=== PATIENT | male | born 1965 | race Caucasian/White ===

== ENCOUNTER → 2018-02-21 14:00 | Outpatient (CLI) | payer OTHER, SELFPAY | PROVIDERS: Family Provider Internal Medicine; PCP Internal Medicine | DX: Z23 Encounter for immunization (principal) | CPT/HCPCS: 90471; 90686 ==

== ENCOUNTER → 2018-05-24 09:28 | Outpatient (CLI) | payer OTHER, SELFPAY ==
--- NOTE | 2018-05-24 | DI.CT.S_ITS ---
PROCEDURE: CT CHEST ABD PEL W CON INDICATIONS: Reflux with upper abdominal pain TECHNIQUE: After the administration of oral and intravenous contrast, 5 mm thick sections acquired from the lung apices to the symphysis. 5 mm coronal and sagittal reformats were performed, with additional 7 mm coronal MIP reformats through the lungs. For radiation dose reduction, the following was used: automated exposure control, adjustment of mA and/or kV according to patient size. COMPARISON: None. FINDINGS: Image quality: Excellent. CHEST: Lungs and pleura: No acute airspace opacities. No pleural effusions or pneumothorax. Central and peripheral airways appear patent and normal in caliber. Mediastinum: Heart size is normal. No pericardial effusion. No mediastinal or hilar adenopathy by size criteria. Thoracic aorta and central pulmonary arteries are normal in size. Esophagus is normal in caliber. There is no hiatal hernia. Of note, questionable mucosal thickening is present at the anterior aspect of the gastroesophageal junction (series 2, image 54). The stomach demonstrates otherwise normal contours and wall thickness. Chest wall: No axillary or supraclavicular adenopathy by size criteria. Thyroid gland is unremarkable. ABDOMEN: Solid organs: Liver is normal in size and enhancement. A 2 mm diameter gallstone is present within the gallbladder fundus near the neck. No gallbladder wall thickening or pericholecystic fluid. Biliary system is non dilated. Pancreas enhances normally. Spleen is normal in size and enhancement. No adrenal nodules. Kidneys demonstrate normal size and enhancement, without hydronephrosis. A low density cyst is present within the lower pole of the left kidney. Peritoneum and bowel: Bowel loops demonstrate normal wall thickness and caliber. The appendix is thin walled and gas filled. No free fluid or air. Nodes and vessels: No retroperitoneal or mesenteric adenopathy by size criteria. Aorta and inferior vena cava are normal in size. There are scattered atheromatous calcifications throughout the aorta and iliac arteries bilaterally. Miscellaneous: No ventral hernias. PELVIS: Genitourinary: Bladder wall thickness is normal. Miscellaneous: No inguinal hernias or adenopathy. Bones: No suspicious bony lesions. No vertebral body compression fractures. IMPRESSION: 1. Questionable mucosal thickening of the anterior aspect of the gastroesophageal junction. Distal esophageal mass or Lilly's esophagus cannot be excluded. Differential considerations include incomplete distention of the normal gastric mucosa. If further characterization is warranted, direct visualization via endoscopy is recommended. Alternatively, barium swallow may be helpful to further characterize the mucosa in this region. 2. No acute intra-abdominal findings. Normal appendix. Dictated by: Geni Shearer M.D. on 05/24/2018 at 12:27 Approved by: Geni Shearer M.D. on 05/24/2018 at 12:38
== END ==
PROVIDERS: Family Provider Internal Medicine; PCP Internal Medicine; Visit Provider Physical Medicine & Rehabilitation
DX: K21.9 Gastro-esophageal reflux disease without esophagitis (principal); R10.10 Upper abdominal pain, unspecified
CPT/HCPCS: 71260; 74177; Q9967

== ENCOUNTER 2018-10-17 10:23 | Day surgery (SDC) | payer OTHER, SELFPAY ==
[2018-10-17] VITALS (9 sets, daily range): BP systolic 129–163; BP diastolic 82–104; PULSE 78–95; RESP 8–20; TEMP 36.3–36.5; O2SAT 88–96; BMI 32.0
--- NOTE | 2018-10-17 | PATH_ITS ---
[facility] Accession Number: [id number] . 01 Material submitted: . esophagus, E-G Junction - GE JUNCTION BIOPSIES . 02 Diagnosis: Gastroesophageal Junction, Biopsies: Squamocolumnar junctional mucosa with mild reactive features of reflux esophagitis. Negative for specialized intestinal metaplasia on alcian blue stain. Negative for dysplasia or malignancy. V/10/20/2018 . 02 Electronically signed: . Armaan Shah MD, PhD, Pathologist NPI- [id number] . 01 Gross description: . GE JUNCTION BIOPSIES: Received in formalin are multiple fragment(s) of jean-baptiste, soft tissue measuring 0.7 x 0.3 x 0.2 cm in aggregate submitted entirely in 1 cassette(s) /CKI /CKI . 02 Microscopic: . An alcian blue stain is performed to evaluate for specialized intestinal metaplasia, and is negative for goblet cells. A control stain shows appropriate reactivity. . 02 Pathologist provided ICD-10: K21.0 . 02 CPT . 714405, 289412 Performed at: 01 [facility] [address], [place], [place] [id number] MD David Moon MD Phone: [phone] Performed at: 02 [facility] [address] [place], [place] [id number] MD Amanda Otto MD Phone: [phone]
--- NOTE | 2018-10-17 10:39 | SUR.PREOP ---
Pt. states I have always been on the cusp of HTN, has discussed HTN with PCP.
[2018-10-17] MEDS: SODIUM CHLORIDE 0.9% 1,000 ML 200 ML IV (10:46)
--- NOTE | 2018-10-17 11:36 | PM.HP.1 ---
History of Present Illness Date Patient Seen: 10/17/18 Time Patient Seen: 11:36 Chief complaint: [id number] Narrative: The patient is a gentleman who has occasional reflux disease. He has used medications in the past but finds it as needed antacids seem to work also. He had an upper GI that showed the possibility of a stricture in his distal esophagus he may have a hiatal hernia. I was asked to scope him to rule out any kind of mass or stricture in his distal esophagus. Patient History Medical History Cardiac dysrhythmia, unspecified (Chronic) Dyspnea (Chronic) Gastroesophageal reflux disease without esophagitis (Chronic 08/13/16) Social History marital status: number of children: 2 household members: spouse lives independently: Yes caregiver/support person: No housing: house pets and animals: Yes education level: other (Bachelors ) occupational status: employed current occupational exposures/hazards: Yes leisure activities: other ([employer] Smoking Status: Never smoker Tobacco: How many years used: 0 quit status: quit date established (Never Started) second hand exposure: Yes (Childhood) alcohol intake: current (A couple drinks a week.) substance use type: does not use Family & Social History Social History: household members spouse lives independently Yes caregiver/support person No Tobacco & Substance use: Smoking Status Never smoker alcohol intake current Meds Home Medications Medication Instructions Recorded Confirmed Type No Known Home Medications 03/30/18 03/30/18 History Allergies Allergy/AdvReac Type Severity Reaction Status Date / Time No Known Drug Allergies Allergy Verified 03/30/18 09:44 Review of Systems Review of Systems All systems reviewed & are unremarkable except as noted in HPI and below Exam Vital Signs (past 8 hours): - 10/17/18 10:34 Temperature 97.5 F L Pulse Rate 86 Respiratory Rate 16 Blood Pressure 163/104 H Pulse Oximetry 96 Oxygen Delivery Method Room Air Narrative Exam Narrative: Pleasant cooperative patient no apparent distress. Lungs are clear to auscultation. No rales or rhonchi. Heart regular rate and rhythm no murmur gallop. Abdomen is soft nontender without mass. No obvious hernias. Patient is alert and oriented x3. Assessment & Plan Assessment & Plan narrative: The patient for an EGD and possible dilatation and/or biopsy. I have discussed the procedure with them. Risks of bleeding, perforation which would necessitate major operation, were discussed. All questions were answered. They wished to proceed.
--- NOTE | 2018-10-17 11:39 | P.HP_ITS ---
History of Present Illness Date Patient Seen: 10/17/18 Time Patient Seen: 11:36 Chief complaint: [id number] Narrative: The patient is a gentleman who has occasional reflux disease. He has used medications in the past but finds it as needed antacids seem to work also. He had an upper GI that showed the possibility of a stricture in his distal esophagus he may have a hiatal hernia. I was asked to scope him to rule out any kind of mass or stricture in his distal esophagus. Patient History Medical History Cardiac dysrhythmia, unspecified (Chronic) Dyspnea (Chronic) Gastroesophageal reflux disease without esophagitis (Chronic 08/13/16) Social History marital status: number of children: 2 household members: spouse lives independently: Yes caregiver/support person: No housing: house pets and animals: Yes education level: other (Bachelors ) occupational status: employed current occupational exposures/hazards: Yes leisure activities: other ([employer] Smoking Status: Never smoker Tobacco: How many years used: 0 quit status: quit date established (Never Started) second hand exposure: Yes (Childhood) alcohol intake: current (A couple drinks a week.) substance use type: does not use Family & Social History Social History: household members spouse lives independently Yes caregiver/support person No Tobacco & Substance use: Smoking Status Never smoker alcohol intake current Meds Home Medications Medication Instructions Recorded Confirmed Type No Known Home Medications 03/30/18 03/30/18 History Allergies Allergy/AdvReac Type Severity Reaction Status Date / Time No Known Drug Allergies Allergy Verified 03/30/18 09:44 Review of Systems Review of Systems All systems reviewed & are unremarkable except as noted in HPI and below Exam Vital Signs (past 8 hours): - 10/17/18 10:34 Temperature 97.5 F L Pulse Rate 86 Respiratory Rate 16 Blood Pressure 163/104 H Pulse Oximetry 96 Oxygen Delivery Method Room Air Narrative Exam Narrative: Pleasant cooperative patient no apparent distress. Lungs are clear to auscultation. No rales or rhonchi. Heart regular rate and rhythm no murmur gallop. Abdomen is soft nontender without mass. No obvious hernias. Patient is alert and oriented x3. Assessment & Plan Assessment & Plan narrative: The patient for an EGD and possible dilatation and/or biopsy. I have discussed the procedure with them. Risks of bleeding, perforation which would necessitate major operation, were discussed. All questions were answered. They wished to proceed.
--- NOTE | 2018-10-17 11:39 | PM.PREOP ---
Pre-operative Note Interval Note History & Physical reviewed/Exam performed by Physician: Yes Changes to H&P: No ASA Class (for procedural sedation): I
[2018-10-17] MEDS: LIDOCAINE 4% SOLN 50 ML 20 ML TOP (12:23)
[2018-10-17] MEDS: TETRACAINE/BENZOCAINE/BUTAMBEN (CETACAINE) BOTTLE 1 SPRAY TOP (12:24)
[2018-10-17] MEDS: fentaNYL 250 MCG/5 ML INJ IV (12:25)
[2018-10-17] MEDS: MIDAZOLAM 5 MG/5 ML VIAL IV (12:25)
--- NOTE | 2018-10-17 12:47 | PM.OP.ENDO ---
Operative Date/Time/Diagnoses Date of procedure: 10/17/18 Time of procedure: 12:47 Pre-op diagnosis: Gastroesophageal reflux disease. Possible Lilly's. 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 Surgeon: Darin Julian Procedure Notes SCOAP/Timeout: Performed Procedure in detail: The patient had topical anesthetic applied to oropharynx. She was placed in left lateral decubitus position and underwent IV sedation directed by the surgeon consisting of fentanyl and Versed. A bite block was inserted and the scope was advanced through it into the esophagus. The esophagus was unremarkable. GE junction was noted at 40 cm from the incisors. There was a small prominent fold at the GE junction that extended into the lumen. The lumen itself was not narrowed. The surface was inflamed.. The stomach insufflated well. There were no lesions seen in the body, antrum or at the incisura. The pyloric channel was widely patent. The duodenum was unremarkable to the 3rd part. The scope was brought back into the stomach and retroflexed. The proximal stomach was normal except for a visible hiatal hernia. the hernia was a little unusual in that the it was somewhat eccentric that is elliptical rather than circular. The scope was straightened and brought out through the esophagus again. Multiple biopsies were taken at the GE junction including of this inflamed fold of tissue. there was some extension of red tissue above the GE junction suggestive of Lilly's esophagus. there was some bleeding at the biopsy sites that was slowing down when the patient began to vigorously cough and belch. The scope had to be quickly removed. the patient tolerated the procedure well. 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
== END 2018-10-17 13:33 | disposition home or self-care (01) ==
PROVIDERS: Family Provider Internal Medicine; PCP Internal Medicine; Visit Provider Specialist
PROC: 0DJ08ZZ Inspection of Upper Intestinal Tract, Via Natural or Artificial Opening Endoscopic (ICD-10-PCS; CPT 43235; principal; 2018-10-17 11:45)
DX: K21.0 Gastro-esophageal reflux disease with esophagitis (principal); K44.9 Diaphragmatic hernia without obstruction or gangrene; I49.9 Cardiac arrhythmia, unspecified; R06.00 Dyspnea, unspecified
CPT/HCPCS: 43239; 99152; J2250; J3010

== ENCOUNTER → 2019-03-20 15:10 | Outpatient (CLI) | payer OTHER, SELFPAY | PROVIDERS: Family Provider Internal Medicine; PCP Internal Medicine | DX: Z23 Encounter for immunization (principal) | CPT/HCPCS: 90471; 90686 ==

== ENCOUNTER → 2019-04-25 08:03 | Outpatient (CLI) | payer OTHER, SELFPAY ==
[2019-04-25 09:25] LABS: Add Manual Diff / Slide Review NO; Basophils Absolute Auto 100 /uL (0-100); Basophils Percent Auto 0.9 % (0-2); Eosinophils Absolute Auto 200 /uL (0-450); Eosinophils Percent Auto 4.1 % (2-4); Hematocrit 48.6 % (41-53); Hemoglobin 16.5 g/dL (13.5-17.5); Lymphocytes Absolute Auto 1800 /uL (1100-4500); Lymphocytes Percent Auto 32.8 % (25-40); Mean Corpuscular Hemoglobin 30.9 PG (26-34); Monocytes Absolute Auto 500 /uL (0-900); Monocytes Percent Auto 8.7 % (3-14); Neutrophils Absolute Auto 3000 /uL (1500-7000); Neutrophils Percent Auto 53.5 % (50-75); Platelet Count 207 X10^3/uL (150-400); Red Blood Cell Count 5.34 X10^6/uL (4.5-5.9); Red Cell Distribution Width 13.6 % (11.6-14.8); White Blood Cell Count 5.6 X10^3/uL (4.5-11.0)
[2019-04-25 09:47] LABS: Free T4, Direct Thyroxine 0.91 ng/dL (0.78-2.19)
[2019-04-25 09:48] LABS: Alanine Aminotransferase 21 IU/L (<50); Albumin 4.1 g/dL (3.5-5.0); Albumin Globulin Ratio 1.3 (1.0-2.8); Alkaline Phosphatase 81 U/L (38-126); Aspartate Aminotransferase 25 IU/L (17-59); BUN Creatinine Ratio 21.8 (6-22); Bilirubin Total 0.6 mg/dL (0.2-1.3); Blood Urea Nitrogen 24 mg/dL (9-20); Calcium 9.1 mg/dL (8.4-10.2); Carbon Dioxide 26 mmol/L (22-32); Chloride 104 mmol/L (98-107); Cholesterol 238 mg/dL (140-199); Estimated Glomerular Filt Rate > 60.0 mL/min (>60); Globulin 3.1 g/dL (1.7-4.1); Glucose 90 mg/dL (70-100); HDL Cholesterol 47 mg/dL (40-60); HEMOLYSIS < 15 (0-50); LDL Cholesterol Calculated 155 mg/dL (<100); Potassium 4.5 mmol/L (3.4-5.1); Sodium 138 mmol/L (137-145); Total Protein 7.2 g/dL (6.3-8.2); Triglycerides 181 mg/dL (35-150)
[2019-04-25 10:00] LABS: Thyroid Stimulating Hormone 1.61 uIU/mL (0.47-4.68)
== END ==
PROVIDERS: PCP Internal Medicine; Visit Provider Internal Medicine
DX: I10 Essential (primary) hypertension (principal); I49.9 Cardiac arrhythmia, unspecified; K21.9 Gastro-esophageal reflux disease without esophagitis
CPT/HCPCS: 36415; 80053; 80061; 84439; 84443; 85025

== ENCOUNTER → 2019-09-07 15:12 | Outpatient (CLI) | payer OTHER, SELFPAY ==
[2019-09-09 05:38] LABS: COVID19 Sendout Not Detected (Not Detected)
== END ==
PROVIDERS: PCP Internal Medicine; Visit Provider Family Medicine
DX: R68.89 Other general symptoms and signs (principal)
CPT/HCPCS: 87635

== ENCOUNTER → 2020-04-22 | Outpatient (CLI) | payer OTHER, SELFPAY | PROVIDERS: PCP Internal Medicine; Referring Provider Internal Medicine; Visit Provider Internal Medicine | DX: Z23 Encounter for immunization (principal) | CPT/HCPCS: 90471; 90686 ==

== ENCOUNTER → 2020-06-18 13:44 | Outpatient (CLI) | payer OTHER, SELFPAY ==
[2020-06-18] MEDS: COVID-19 VACC(MODERNA-1)/PF 100 MCG/0.5 ML VIAL IM (13:47)
== END ==
PROVIDERS: PCP Internal Medicine; Visit Provider Internal Medicine
DX: Z23 Encounter for immunization (principal)
CPT/HCPCS: 0011A; 91301

== ENCOUNTER → 2020-07-15 15:45 | Outpatient (CLI) | payer OTHER, SELFPAY ==
[2020-07-15] MEDS: COVID-19 VACC #2, MRNA(MOD) 100 MCG/0.5 ML VIAL IM (16:25)
== END ==
PROVIDERS: PCP Internal Medicine; Visit Provider Internal Medicine
DX: Z23 Encounter for immunization (principal)
CPT/HCPCS: 0012A; 91301

== ENCOUNTER → 2021-01-13 07:42 | Outpatient (CLI) | payer OTHER, SELFPAY ==
[2021-01-13 08:37] LABS: COVID19 -Nasal RAPID Negative (Negative)
== END ==
PROVIDERS: PCP Internal Medicine; Referring Provider Physician Assistant; Visit Provider Physician Assistant
DX: Z20.822 Contact with and (suspected) exposure to COVID-19 (principal)
CPT/HCPCS: 87635

== ENCOUNTER → 2021-04-14 17:35 | Outpatient (CLI) | payer OTHER, SELFPAY | PROVIDERS: PCP Internal Medicine; Referring Provider Internal Medicine; Visit Provider Internal Medicine | DX: Z23 Encounter for immunization (principal) | CPT/HCPCS: 90471; 90686 ==

== ENCOUNTER → 2021-04-24 13:54 | Outpatient (CLI) | payer OTHER, SELFPAY ==
[2021-04-24] MEDS: COVID-19 VACC #3, MRNA(MOD) 50 MCG/0.25 ML VIAL IM (14:06)
== END ==
PROVIDERS: PCP Internal Medicine; Visit Provider Internal Medicine
DX: Z23 Encounter for immunization (principal)
CPT/HCPCS: 0013A; 91301

== ENCOUNTER → 2022-03-26 14:15 | Outpatient (CLI) | payer OTHER, SELFPAY | PROVIDERS: PCP Internal Medicine; Referring Provider Internal Medicine; Visit Provider Internal Medicine | DX: Z23 Encounter for immunization (principal) | CPT/HCPCS: 90471; 90686 ==

== ENCOUNTER → 2023-03-29 | Outpatient (CLI) | payer OTHER, SELFPAY | PROVIDERS: PCP Internal Medicine; Referring Provider Family Medicine; Visit Provider Family Medicine | DX: Z23 Encounter for immunization (principal) | CPT/HCPCS: 90471; 90686 ==